=== PATIENT | female | born 1975 | race Hispanic/Latino ===

== ENCOUNTER 2021-10-24 05:30 | Observation (INO) | payer OTHER ==
[2021-10-23 14:52] LABS: BASOPHILS % (AUTO) 0.5 % (0.0-5.0); EOSINOPHILS % (AUTO) 2.9 % (0.0-8.0); HEMATOCRIT 37.8 % (36-48); LYMPHOCYTES % (AUTO) 31.8 % (21.0-51.0); MEAN CORPUSCULAR HEMOGLOBIN 27.1 pg (27.0-33.0); MEAN CORPUSCULAR HGB CONC 32.3 g/dL (32.0-36.0); MEAN CORPUSCULAR VOLUME 83.8 fL (79-99); MONOCYTES % (AUTO) 7.9 % (3.0-13.0); NEUTROPHILS % (AUTO) 56.5 % (40.0-77.0); PLATELET COUNT (AUTO) 325 K/uL (130-400); RED BLOOD CELL COUNT(AUTO) 4.51 MIL/uL (4.00-5.50); RED CELL DISTRIBUTION WIDTH 14.9 % (11.0-15.5); WHITE BLOOD COUNT (AUTO) 7.6 K/uL (4.8-10.8)
[2021-10-23 15:02] LABS: INR 0.94 (0.85-1.15); PROTHROMBIN TIME 10.3 SEC (9.6-11.6)
[2021-10-23 15:03] LABS: PARTIAL THROMBOPLASTIN TIME 25.6 SEC (26.3-35.5)
[2021-10-23 15:13] LABS: APPEARANCE,URINE CLEAR (CLEAR); BILIRUBIN,URINE NEGATIVE (NEGATIVE); COLOR,URINE YELLOW (YELLOW); GLUCOSE, URINE (UA) NEGATIVE (NEGATIVE); KETONES,URINE NEGATIVE (NEGATIVE); LEUKOCYTE ESTERASE ,URINE NEGATIVE (NEGATIVE); NITRATE,URINE NEGATIVE (NEGATIVE); OCCULT BLOOD,URINE TRACE-INTACT (NEGATIVE); PH,URINE 5.5 (5.0-8.0); PROTEIN,URINE NEGATIVE (NEGATIVE); UROBILINOGEN,URINE 0.2 mg/dL (0.2-1.0)
[2021-10-23 15:38] LABS: BACTERIA,URINE Rare /HPF (None Seen); MUCUS,URINE Rare LPF (None Seen); SQUAMOUS EPITHELIAL CELL,UR Few /HPF (0-2); WBC,URINE 0-1 /HPF (0-1)
[2021-10-23 15:56] VITALS: BP 173/93
[~2021-10-24] VITALS: Ht 160 cm; Wt 93.8 kg
[2021-10-24] VITALS (26 sets, daily range): BP systolic 106–152; BP diastolic 65–94
[~2021-10-24 05:30] MED LIST: FERR-72 PO
[2021-10-24] MEDS ORDERED: LACTATED RINGERS 1000ML 1,000 ML IV SCH (06:00)
[2021-10-24] MEDS ORDERED: CEFAZOLIN SODIUM 1 GM VIAL IVP SCH (06:00)
[2021-10-24] MEDS ORDERED: HYDR-3421 PO (07:28)
[2021-10-24] MEDS ORDERED: ROSU20TA31 PO (07:28)
[2021-10-24] MEDS ORDERED: ERGO500093 PO (07:28)
[2021-10-24] MEDS ORDERED: ROCURONIUM 10MG/1ML SYR 10 MG/ML ML ONE (09:11)
[2021-10-24] MEDS ORDERED: MIDAZOLAM HCL 1 MG/ML 2ML VIAL ONE (09:11)
[2021-10-24] MEDS ORDERED: ONDANSETRON 4MG INJ ONE (09:11)
[2021-10-24] MEDS ORDERED: PROPOFOL 10 MG/ML 20ML VIAL IV ONE (09:11)
[2021-10-24] MEDS ORDERED: FENTANYL CITRATE PF 50 MCG/1 ML 5ML AMP IV ONE (09:12)
[2021-10-24] MEDS ORDERED: CEFAZOLIN SODIUM 2 GM VIAL IV ONE (09:12)
[2021-10-24] MEDS ORDERED: KETOROLAC 30MG VIAL (30MG/ML) ONE (09:55)
[2021-10-24] MEDS ORDERED: GLYCOPYRROLATE 1 MG/5 ML SYRINGE ONE (10:02)
[2021-10-24] MEDS ORDERED: NEOSTIGMINE 5MG/5ML SYR IV ONE (10:02)
[2021-10-24] MEDS ORDERED: FENTANYL CITRATE PF 50 MCG/1 ML 2ML VIAL ONE (10:57)
[2021-10-24] MEDS ORDERED: DOCUSATE SODIUM 100 MG CAP PO PRN (12:30)
[2021-10-24] MEDS ORDERED: ONDANSETRON 4MG INJ IVP PRN (12:30)
[2021-10-24] MEDS ORDERED: SIMETHICONE 80 MG TAB.CHEW PO PRN (12:30)
[2021-10-24] MEDS ORDERED: BISACODYL 10 MG SUPP.RECT RC PRN (12:30)
[2021-10-24] MEDS ORDERED: PROMETHAZINE HCL 25 MG/ML 1ML AMPULE IM PRN (12:30)
[2021-10-24] MEDS ORDERED: ACETAMINOPHEN WITH CODEINE 1 TAB TAB PO PRN (12:30)
[2021-10-24] MEDS ORDERED: IBUPROFEN 600 MG TABLET PO PRN (12:30)
[2021-10-24] MEDS: PROMETHAZINE HCL 25 MG/ML 1ML AMPULE IM PRN ×2 (12:50→18:29)
[2021-10-24] MEDS: MEPERIDINE-PF 75 MG/ML SYG IM PRN ×2 (12:51→18:29)
[2021-10-24] MEDS: DEXTROSE 5 %-0.45 % NACL 1,000 ML IV PRN ×2 (12:54→21:20)
[2021-10-25 03:57] VITALS: BP 124/81
[2021-10-25] MEDS: DEXTROSE 5 %-0.45 % NACL 1,000 ML IV PRN (05:15)
[2021-10-25 06:22] LABS: MEAN CORPUSCULAR HEMOGLOBIN 27.3 pg (27.0-33.0); MEAN CORPUSCULAR HGB CONC 33.2 g/dL (32.0-36.0); MEAN CORPUSCULAR VOLUME 82.1 fL (79-99); RED BLOOD CELL COUNT(AUTO) 4.14 MIL/uL (4.00-5.50); RED CELL DISTRIBUTION WIDTH 14.8 % (11.0-15.5); WHITE BLOOD COUNT (AUTO) 13.4 K/uL (4.8-10.8)
[2021-10-25 07:53] VITALS: BP 122/85
[2021-10-25 11:35] VITALS: BP 125/63
[2021-10-25] MEDS ORDERED: ACET-2079 PO (13:10)
== END 2021-10-25 13:35 | disposition home or self-care (01) ==
LOC: DAH 05:30 → WSH 05:31 → DAH 05:31
PROVIDERS: ADMIT Obstetrics & Gynecology; ATTEND Obstetrics & Gynecology
DX: N92.1 Excessive and frequent menstruation with irregular cycle (principal); Z20.822 Contact with and (suspected) exposure to COVID-19; D25.9 Leiomyoma of uterus, unspecified; D50.9 Iron deficiency anemia, unspecified; N81.4 Uterovaginal prolapse, unspecified; K46.9 Unspecified abdominal hernia without obstruction or gangrene; E66.01 Morbid (severe) obesity due to excess calories; E78.5 Hyperlipidemia, unspecified; Z98.51 Tubal ligation status; Z79.899 Other long term (current) drug therapy; Z98.890 Other specified postprocedural states; Z68.36 Body mass index [BMI] 36.0-36.9, adult
CPT/HCPCS: 85025; 85610; 85730; 86850; 86900; 86901; 87426; 81001; 36415 ×2; 58263; 96372; 81025; 85027; A6260; G0378 ×30; G0379; A4510; A4663; J7120 ×2; A4351; A4606; J0690 ×2; J3010 ×2; J3490; J2710; J2550 ×2; J2250; J2704; J2405; J1885; J2175 ×2; A4215; A4223; A4222; A4221; A4600